=== PATIENT | female | born 1980 | race Caucasian/White ===

== ENCOUNTER → 2016-11-22 | Outpatient (CLI) | payer OTHER ==
[~2016-11-22] MED LIST: ETONMIS VAGRING; ONDA4TAB10 SL
[2016-11-22 10:04] LABS: CHOLESTEROL 179 mg/dl (0-200); GLUCOSE,FASTING 95 mg/dl (70-99)
== END | disposition home or self-care (01) ==
LOC: C.LAB 08:33
PROVIDERS: ATTEND Nurse Practitioner Family
DX: Z13.1 Encounter for screening for diabetes mellitus (principal); Z13.220 Encounter for screening for lipoid disorders

== ENCOUNTER 2017-03-18 02:04 | Emergency (ER) | payer OTHER ==
[~2017-03-18] VITALS: Ht 152.4 cm; Wt 55.7 kg
[2017-03-18 02:08] VITALS: TEMP 36.6; Ht 152.4 cm; Wt 55.7 kg
[2017-03-18] MEDS ORDERED: ONDANSETRON INJ 2 MG/ML 2 ML VIAL IV STA (02:23)
[2017-03-18] MEDS ORDERED: ONDANSETRON 8 MG/54 ML D5W ONE (02:26)
[2017-03-18] MEDS ORDERED: SODIUM CHLORIDE 0.9% 1000ML 1,000 ML, SODIUM CHLORIDE 0.9% 1000ML 1,000 ML IV ONE (02:30)
[2017-03-18 02:39] LABS: BASO % 0.5 %; BASO ABS # 0.05 K/uL (0-0.2); COMPLETE YES; EOS % 0.3 %; HEMATOCRIT 37.2 % (37-47); IG% 0.3 %; LYMPH ABS # 2.45 K/uL (1.2-3.4); MEAN CELL VOLUME 92.3 fL (80-100); MEAN CORPUSCULAR HEMOGLOBIN 32.3 pg (25-34); MEAN CORPUSCULAR HGB CONC 34.9 g/dl (32-36); MONO % 8.7 %; NEUT % 64.2 %; PLATELET COUNT 297 K/uL (130-400); RED BLOOD COUNT 4.03 M/uL (4.2-5.4); WHITE BLOOD COUNT 9.42 K/uL (4.8-10.8)
[2017-03-18 02:41] LABS: URINE APPEARANCE CLOUDY (CLEAR); URINE BILIRUBIN NEG (NEG); URINE COLOR DK YELLOW; URINE EPITHELIAL CELL AUTO >30 /lpf (0-5); URINE NITRITE NEG (NEG); URINE SPECIFIC GRAVITY 1.033 (1.000-1.030); UROBILINOGEN NEG (NEG); ZZUR CULT IF INDIC CLEAN CATCH YES
[2017-03-18 02:54] LABS: MANUAL MICROSCOPIC REQUIRED? NO; REVIEW REQ? YES
[2017-03-18 02:57] LABS: BUN/CREATININE RATIO 18.6 (10-20); CREATININE 0.79 mg/dl (0.60-1.20); POTASSIUM 3.6 mmol/L (3.5-5.1); URINE MUCUS PRESENT (NONE PRSENT)
[2017-03-18 02:59] LABS: ALB/GLOB RATIO 1.2 (0.9-2)
[2017-03-18] MEDS ORDERED: ETONMIS VAGRING (03:02)
[2017-03-18] MEDS ORDERED: ONDA4TAB10 SL (04:35)
[2017-03-18 04:41] VITALS: BP 109/63; PULSE 59; O2SAT 99
[2017-03-18] MEDS ORDERED: ONDANSETRON HOME PACK 4MG OD TAB PO ONE (04:45)
--- NOTE | 2017-03-19 00:33 | EMERGENCY ROOM VISIT NOTE ---
History First contact with patient: 02:13 Chief Complaint: VOMITING Stated Complaint: VOMITING BLOOD,DIARRHEA Nursing Triage Summary: pt ambulatory to B2. pt actively vomiting yellow bile, approx 100cc, upon assessment. pt reports that vomiting began approx 4 hours ago. states earlier today she had a headache, no hx of migraines. pt denies urinary symptoms. associates diarrhea x2 episodes. pt alert and oriented x4. History of Present Illness The patient is a 36 year old female who presents to the Emergency Room with complaints of nausea and vomiting for the past 4 hours. The patient was feeling well all day, and as she was getting ready for bed and began with her symptoms. She initially had food emesis, however this is now much more watery/ bilious. The patient has not had fever or chills. No distinct chest pain or abdominal pain. She had 2 episodes of loose stools. The patient has not been on antibiotics recently. She does not believe that she is . She rates her discomfort an 8/10. Review of Systems More than 10 systems were reviewed and otherwise negative with the exception of history of present illness. Past Medical/Surgical History No chronic medical disease Family History No pertinent family history Social History Smoking Status: Never Smoker Housing Status: lives with family Current/Historical Medications Scheduled Etonogestrel/Ethinyl Estradiol (Nuvaring), 1 EA VAGRING MONTHLY Ondasetron Odt (Zofran Odt), 4 MG SL Q6H Physical Exam Vital Signs Date Time Temp Pulse Resp B/P (MAP) Pulse Ox O2 Delivery O2 Flow Rate FiO2 03/18/17 04:41 59 18 109/63 99 Room Air 03/18/17 02:51 76 18 110/93 100 Room Air 03/18/17 02:08 36.6 83 20 120/87 100 Room Air Pain Rating (0-10): 0 Physical Exam VITALS: Vitals are noted on the nurse's note and reviewed by myself. Vital signs stable. GENERAL: Well-developed, well-nourished, white female who is actively vomiting during the exam and interview process. HEAD: Normocephalic atraumatic. MOUTH: Mucous membranes dry. Tonsils are not enlarged. Pharynx without erythema, blood, or exudate. Uvula midline. Airway patent. NECK: Supple without nuchal rigidity. No lymphadenopathy. No thyromegaly. Cervical spine is nontender. HEART: Regular rate and rhythm without murmurs gallops or rubs. LUNGS: Clear to auscultation bilaterally without wheezes, rales or rhonchi. No retractions or accessory muscle use. ABDOMEN: Positive normal bowel sounds x 4. Soft, nontender, without masses or organomegaly. No guarding or rebound tenderness. MUSCULOSKELETAL: No muscle atrophy, erythema, or edema noted. Full range of motion without joint tenderness in all extremities. Medical Decision & Procedures Laboratory Results 03/18/17 02:25 Red Blood Count 4.03, Mean Corpuscular Volume 92.3, Mean Corpuscular Hemoglobin 32.3, Mean Corpuscular Hemoglobin Concent 34.9, Mean Platelet Volume 10.0, Neutrophils (%) (Auto) 64.2, Lymphocytes (%) (Auto) 26.0, Monocytes (%) (Auto) 8.7, Eosinophils (%) (Auto) 0.3, Basophils (%) (Auto) 0.5, Neutrophils # (Auto) 6.04, Lymphocytes # (Auto) 2.45, Monocytes # (Auto) 0.82, Eosinophils # (Auto) 0.03, Basophils # (Auto) 0.05 03/18/17 02:25 Test 03/18/17 02:23 03/18/17 02:25 Urine Test NEG (NEG) White Blood Count 9.42 K/uL (4.8-10.8) Red Blood Count 4.03 M/uL (4.2-5.4) Hemoglobin 13.0 g/dL (12.0-16.0) Hematocrit 37.2 % (37-47) Mean Corpuscular Volume 92.3 fL (80-100) Mean Corpuscular Hemoglobin 32.3 pg (25-34) Mean Corpuscular Hemoglobin Concent 34.9 g/dl (32-36) Platelet Count 297 K/uL (130-400) Mean Platelet Volume 10.0 fL (7.4-10.4) Neutrophils (%) (Auto) 64.2 % Lymphocytes (%) (Auto) 26.0 % Monocytes (%) (Auto) 8.7 % Eosinophils (%) (Auto) 0.3 % Basophils (%) (Auto) 0.5 % Neutrophils # (Auto) 6.04 K/uL (1.4-6.5) Lymphocytes # (Auto) 2.45 K/uL (1.2-3.4) Monocytes # (Auto) 0.82 K/uL (0.11-0.59) Eosinophils # (Auto) 0.03 K/uL (0-0.5) Basophils # (Auto) 0.05 K/uL (0-0.2) RDW Standard Deviation 42.8 fL (36.4-46.3) RDW Coefficient of Variation 12.6 % (11.5-14.5) Immature Granulocyte % (Auto) 0.3 % Immature Granulocyte # (Auto) 0.03 K/uL (0.00-0.02) Urine Color DK YELLOW Urine Appearance CLOUDY (CLEAR) Urine pH 5.0 (4.5-7.5) Urine Specific Collins 1.033 (1.000-1.030) Urine Protein NEG (NEG) Urine Glucose (UA) NEG (NEG) Urine Ketones 3+ (NEG) Urine Occult Blood 1+ (NEG) Urine Nitrite NEG (NEG) Urine Bilirubin NEG (NEG) Urine Urobilinogen NEG (NEG) Urine Leukocyte Esterase NEG (NEG) Urine WBC (Auto) 1-5 /hpf (0-5) Urine RBC (Auto) 0-4 /hpf (0-4) Urine Hyaline Casts (Auto) 0 /lpf (0-5) Urine Epithelial Cells (Auto) >30 /lpf (0-5) Urine Bacteria (Auto) 1+ (NEG) Urine Mucus PRESENT (NONE PRSENT) Anion Gap 6.0 mmol/L (3-11) Est Creatinine Clear Calc Drug Dose 77.8 ml/min Estimated GFR () 112.4 Estimated GFR (Non- 97.0 BUN/Creatinine Ratio 18.6 (10-20) Calcium Level 9.0 mg/dl (8.5-10.1) Total Bilirubin 0.7 mg/dl (0.2-1) Aspartate Amino Transf (AST/SGOT) 16 U/L (15-37) Alanine Aminotransferase (ALT/SGPT) 21 U/L (12-78) Alkaline Phosphatase 43 U/L (45-117) Total Protein 7.5 gm/dl (6.4-8.2) Albumin 4.1 gm/dl (3.4-5.0) Globulin 3.4 gm/dl (2.5-4.0) Albumin/Globulin Ratio 1.2 (0.9-2) Medications Administered Medications (Trade) Dose Ordered Sig/Josafat Route Start Time Stop Time Status Last Admin Dose Admin Sodium Chloride/ Sodium Chloride 2,000 ml @ 999 mls/hr Q2H1M ONCE IV 03/18/17 02:30 03/18/17 04:30 DC 03/18/17 02:29 999 MLS/HR Ondansetron HCl (Zofran 8mg Iv) 8 mg STK-MED ONCE .ROUTE 03/18/17 02:26 03/18/17 02:27 DC 03/18/17 02:30 8 MG Ondansetron HCl (ZOFRAN ODT 4MG Home Pack) 1 homepack UD ONCE PO 03/18/17 04:45 03/18/17 04:46 DC 03/18/17 04:41 1 HOMEPACK ED Course Physical exam and history were performed. Nursing notes, EMR, and Medication List were personally reviewed. Patient appears to have nausea and vomiting for the past 4 hours. She is vomiting during the exam process. IV access was established and labs were obtained. The patient was hydrated with 2 L normal saline and 8 mg IV Zofran. The patient's blood work is as above and was reviewed. She does not have a significant elevated white blood cell count, gross anemia, bandemia, or significant electrolyte imbalance. Lipase and transaminases are nondiagnostic. The patient felt significantly better after IV hydration and antibiotics. She did not have further emesis after treatment. She was monitored in the ER for several hours and was able to tolerate oral liquids here. Overall the patient appears significantly better and stable for discharge home. She will be given a short course of Zofran and instructions to follow with her primary care physician with any ongoing or persistent symptoms. The patient was pleased with this and otherwise return to the ER with any new, worsening, or concerning symptoms. I do suspect that her symptoms are likely food borne or viral in etiology, and she should feel much better over the next 12-24 hours. The chart was completed utilizing [employer] Voice Recognition Software. Grammatical errors, random word insertions, pronoun errors, and incomplete sentences are an occasional consequence of this system due to software limitations, ambient noise, and hardware issues. Any formal questions or concerns about the content, text, or information contained within the body of this dictation should be directly addressed to the provider for clarification. . Medical Decision Differential diagnosis: Etiologies such as gastroenteritis, food borne illness, infections, appendicitis , diverticulitis, inflammatory bowel disease, obstruction, GI bleed, biliary pathology, as well as others were entertained. Impression Primary Impression: Nausea and vomiting Departure Information Dispostion Home / Self-Care Condition GOOD Prescriptions Ondasetron Odt (ZOFRAN ODT) 4 Mg Tab 4 MG SL Q6H for Nausea, #12 TAB Prov: Timothy Peralta PA-C 03/18/17 Forms HOME CARE DOCUMENTATION FORM, IMPORTANT VISIT INFORMATION Patient Instructions My [facility] Additional Instructions You were seen and evaluated today on an emergency basis only. This is not a substitute for, or an effort to provide, complete comprehensive medical care. It is not possible to recognize and treat all injuries or illnesses in a single emergency department visit. For this reason it is recommended that you followup with your primary care physician this week for any ongoing or persistent symptoms. Zofran 1 tablet every 6 hrs as needed for nausea. You are welcome to return to the emergency department anytime with new, worsening, or concerning symptoms.
== END 2017-03-18 04:45 | disposition home or self-care (01) ==
LOC: C.EDB 02:05
DX: R11.2 Nausea with vomiting, unspecified (principal)

== ENCOUNTER 2020-06-21 02:56 | Inpatient (IN) ==
[2020-06-21] MEDS ORDERED: OXYTOCIN 30 UNITS/500 ML BAG IV PRN ×2 (03:54→04:06)
[2020-06-21] MEDS ORDERED: LACTATED RINGER'S 1,000 ML IV PRN (03:54)
--- NOTE | 2020-06-21 04:06 | History & Physical Report ---
Date of Service June 21, 2020 Assessment & Plan (1) Spontaneous rupture of amniotic membranes: 39 yo at 40.4 wks, SROM at term, bloody? most likely from irritated cervix, speculum exam revealed cloudy amniotic fluid, no active bleeding VSS Afebrile FHR reassuring Recommended admit, labs, monitor, IVF, Pitocin augmentation She denies pitocin and IVF if possible, she plans unmedicated labor Discussed augmentation with pitocin will decrease the latent phase of labor and with lower risk of intraamniotic infection. She likes to expectant management for few hours and will think about Pitocin All questions were answered (2) Vaginal spotting: History of Present Illness Primary Care Provider: NO PCP Patient is a 39-year-old G1, P0 at 40 weeks and 4 days of gestation who was originally scheduled tomorrow in for induction of labor [facility] in [place] due to renal kidney abnormality. She woke up this morning around 2 AM with leakage of fluid which was clear and minimal initially. She called me and gave me the above information. She reported no pain and good movements and I offered her either come here or go to [facility] where she wants to to deliver baby. She then called me that she saw small freckles of brown bloody discharge and wanted to come here and okay to deliver here at [facility]. She has had no bleeding on the way, start to have mild irregular contractions and they are not painful. She reports good movements. She denies fever chills, abdominal pain, chest pain, shortness of breath. No PLASENCIA/ Change in vision/N&V 1) AMA 2) urinary tract dilatation GBS negative Coronovirus testing was not done. Allergies Allergy/AdvReac Type Severity Reaction Status Date / Time No Known Allergies Allergy Unverified 03/18/17 02:12 Home Medications Medication Instructions Recorded Confirmed Type [id number] 1 tab PO DAILY 06/21/20 06/21/20 History [] Patient History Social History Smoking Status: Former smoker Hx Alcohol Use: No Hx Substance Use: No Preferred Language: Bengali marital status: Feels Safe at Home: Yes Safety Concerns: Feels Safe At This Time [employer] History No h/o STD's Review of Systems All systems reviewed & are unremarkable except as noted in HPI & below Physical Exam Constitutional: WD/WN, vitals as above well developed NAD Gastrointestinal (Abdomen): normal bowel sounds, soft, nontender, no hepatosplenomegaly (GRAVID, NT) Genitourinary: normal external appearance Manual OB Exam: + cervical dilation 3 cm, + cervical effacement 30%, + station high and + amniotic fluid (Cloudy, cervix irritated, bleed on touch) nitrazine positive OB Exam Monitor Tracing: + category I Results & Data ([facility]) Vital Signs (Past 12 Hours) Vital Signs Pulse Resp BP 06/21/20 03:40 76 126/74 06/21/20 03:30 120 H 135/80 06/21/20 03:21 64 139/83 06/21/20 03:18 18 06/21/20 03:09 85 147/97 H
[2020-06-21 04:15] LABS: Hematocrit (blood only) 35.5 % (37-47); Hemoglobin 12.2 g/dL (12.0-16.0); Mean Corpuscular Hemoglobin 33.8 pg (25-34); Mean Corpuscular Hgb Conc 34.4 g/dL (32-36); Mean Corpuscular Volume 98.3 fL (80-100); Mean Platelet Volume 11.8 fL (7.4-10.4); Platelet Count 180 K/uL (130-400); RDW Coefficient of Variation 13.5 % (11.5-14.5); RDW Standard Deviation 48.9 fL (36.4-46.3); Red Blood Count 3.61 M/uL (4.2-5.4); White Blood Count 9.26 K/uL (4.8-10.8)
[2020-06-21 05:14] LABS: Fibrinogen 421 mg/dl (184-400); Partial Thromboplastin Time 27.1 Seconds (21.0-31.0); Prothrombin Time 10.3 Seconds (9.0-12.0)
--- NOTE | 2020-06-21 09:16 | Obstetrical Progress Note ---
Date of Service June 21, 2020 Assessment & Plan Admission and Anticipated Discharge Date Admission Date: June 21, 2020 Subjective Transfer Note 39 F P0000 at 40.4 weeks admitted with SROM clear fluid at 0130 this AM. [place] [facility] [place] anomalies know to [facility]. Patient requesting care [place] [facility] [place] specialized care for baby. Discussed transfer with Dr. Rendon. Will transfer via ambulance. Cervix 3.5/80/-2/vertex. FHT Cat 1. Results & Data ([facility]) Vital Signs (Past 12 Hours) Vital Signs Temp Pulse Resp BP 06/21/20 08:37 75 133/86 06/21/20 07:27 36.6 C 18 06/21/20 07:17 71 126/73 06/21/20 05:30 36.9 C 18 06/21/20 03:40 76 126/74 06/21/20 03:30 36.9 C 120 H 18 135/80 06/21/20 03:21 64 139/83 06/21/20 03:18 18 06/21/20 03:09 85 147/97 H
--- NOTE | 2020-06-30 11:49 | Discharge Summary (DS) ---
REASON FOR ADMISSION AND HOSPITAL COURSE: The patient is a 39-year-old female, para 0-0-0-0, at 40 weeks and 4 days, admitted with spontaneous rupture of membranes, clear fluid. The patient was seen on labor and delivery, she was due to be induced today at [facility] due to bilateral renal anomalies. The patient is known to [facility] and to [facility]. The patient wished to be transferred. The patient was transferred via ambulance to the service of Dr. Rendon at [facility] in [place] in stable condition. At the time of transfer, her cervix was 3.5, 80, -2, vertex. She was stable on discharge. Condition on discharge stable. The patient to be transported via ambulance and a nurse to go with her.
== END 2020-06-21 09:24 | disposition short-term general hospital (02) | DRG 833 ==
LOC: OPB 02:56 → 4S1 03:01